=== PATIENT | male | born 1960 | race Caucasian/White ===

== ENCOUNTER → 2021-05-22 | Outpatient (CLI) | payer OTHER ==
--- NOTE | 2021-05-22 17:21 | RAD ---
EXAM: AP and lateral views of the lumbar spine DATE: 05/22/2021 10:46 AM INDICATION: Reason: LOW BACK PAIN / Spl. Instructions: / History: COMPARISON: No Prior FINDINGS: Vertebral body heights are preserved. Mild L5-S1 disc height loss. Advanced facet degenerative change L2-3 and below. No spinal listhesis. Vascular calcifications. IMPRESSION: 1. Negative acute fracture or subluxation. 2. Multilevel degenerative changes as above. Electronically signed by: Serge Perla MD (05/22/2021 5:19 PM) [email or web address]
--- NOTE | 2021-05-22 17:22 | RAD ---
EXAM: 2 views left knee DATE: 05/22/2021 10:46 AM INDICATION: Reason: LOW BACK PAIN,KNEE PAIN / Spl. Instructions: / History: COMPARISON: No Prior FINDINGS: No acute fracture or dislocation. Small knee joint effusion. Severe medial compartment joint space na rrowing with tricompartmental osteophytes. Chondrocalcinosis. IMPRESSION: No acute fracture or dislocation. Small knee joint effusion. Severe left knee joint osteoarthritis. Electronically signed by: Serge Perla MD (05/22/2021 5:20 PM) [email or web address]
== END ==
LOC: PF 10:05
DX: Z02.71 Encounter for disability determination (principal); M54.5 Low back pain; M17.12 Unilateral primary osteoarthritis, left knee; M25.562 Pain in left knee; M25.462 Effusion, left knee; M11.262 Other chondrocalcinosis, left knee; M25.762 Osteophyte, left knee; M47.816 Spondylosis without myelopathy or radiculopathy, lumbar region; J44.9 Chronic obstructive pulmonary disease, unspecified
CPT/HCPCS: 72100; 73560; 94060; 94640; 94729; 94664